=== PATIENT | male | born 2005 | race Two or more races ===

== ENCOUNTER → 2025-05-13 | Outpatient (CLI) | payer OTHER ==
[~2025-05-13] MED LIST: CEFD300C PO; HYDR-3713 PO; IBUP-1022 PO; NITR100C2 PO; ONDA-282 PO; PYRI1TAB5 PO; TAMS-18 PO
[2025-05-13 12:45] LABS: PLATELET COUNT, AUTOMATED 245 10^3/uL (150-450)
[2025-05-13 13:18] LABS: ALT/SGPT 17 U/L (7.0-40); AST/SGOT 23 U/L (<34); CALCIUM LEVEL 9.5 MG/DL (8.5-10.1); CARBON DIOXIDE LEVEL 28 MMOL/L (20-31); CHLORIDE LEVEL 104 MMOL/L (98-107); CREATININE FOR GFR 0.88 MG/DL (0.70-1.30); GLOMERULAR FILTRATION RATE > 90.0 (>60); POTASSIUM SERUM 4.4 MMOL/L (3.5-5.1); SODIUM LEVEL 141 MMOL/L (136-145)
[2025-05-13 14:00] LABS: APPEARANCE, URINE CLEAR (CLEAR); BACTERIA, URINE AUTO NEGATIVE (NEGATIVE); BILIRUBIN, URINE AUTO NEGATIVE (NEGATIVE); BLOOD, URINE BLOOD NEGATIVE (NEGATIVE); GLUCOSE, URINE (UA) AUTO NEGATIVE (NEGATIVE); KETONE, URINE AUTO NEGATIVE (NEGATIVE); LEUKOCYTE ESTERASE, URINE AUTO NEGATIVE (NEGATIVE); MUCUS, URINE SMALL (NEGATIVE); NITRITE, URINE AUTO NEGATIVE (NEGATIVE); PROTEIN, URINE AUTO NEGATIVE (NEGATIVE); RBC, URINE AUTO 2 /HPF (0-3); SPECIFIC GRAVITY URINE AUTO 1.021 (1.002-1.035); SQUAMOUS EPITHELIAL CELL UR AU 0 /HPF (0-6); UROBILINOGEN, URINE AUTO 0.2 mg/dL (0.0-2.0); WBC, URINE AUTO 3 /HPF (0-3)
== END ==
LOC: M LAB 11:56
PROVIDERS: ATTEND Urology
DX: N20.2 Calculus of kidney with calculus of ureter (principal)

== ENCOUNTER 2025-05-16 10:39 | Day surgery (SDC) | payer OTHER ==
[~2025-05-16] VITALS: Ht 165.1 cm; Wt 71.8 kg
[2025-05-16] MEDS: ISOVUE-300 61% 100 ML VIAL As Ordered ONE (09:11)
[~2025-05-16 10:39] MED LIST changes: -PYRI1TAB5 PO
[2025-05-16] MEDS: LR 1,000 ML IV SCH (11:10)
[2025-05-16] MEDS ORDERED: MIDAZOLAM INJ 2 MG/2 ML VIAL As Ordered ONE (11:14)
[2025-05-16] MEDS ORDERED: LIDOCAINE 2% 100 MG/5 ML SDV (FOR ANES.) As Ordered ONE (11:16)
[2025-05-16] MEDS: ceFAZolin SOD 2 GM IV ONCE IV ONE (11:40)
[2025-05-16] MEDS ORDERED: PYRI1TAB5 PO (11:57)
[2025-05-16 13:18] VITALS: BP 108/64; TEMP 97.1; O2SAT 100
== END 2025-05-16 13:45 | disposition home or self-care (01) ==
LOC: M SDC 10:39 → EDUNIT# 13:00 → M SDC 13:45
PROVIDERS: ATTEND Urology
DX: N21.0 Calculus in bladder (principal); Z79.899 Other long term (current) drug therapy
CPT/HCPCS: 52310; 76000; 82365; C1769; J0690; J2250; J3010